=== PATIENT | female | born 1955 | race Caucasian/White ===

== ENCOUNTER 2018-05-26 07:12 | Observation (INO) | payer OTHER ==
--- NOTE | 2018-05-25 16:44 | PREOPHP ---
DATE OF ADMISSION: 05/26/2018 Scheduled for surgery 05/26/2018. HISTORY OF PRESENT ILLNESS: The patient is a 63-year-old female in overall good health, who presente d recently with a right breast mass in the upper outer quadrant near the periphery with core biopsy r evealing invasive ductal carcinoma. The tumor is estrogen and progesterone receptor positive and HER -2 negative. It measures 2.5 cm on imaging and slightly larger on physical exam. The patient was se en in consultation by oncology and she is scheduled to undergo right breast partial mastectomy with r ight axillary sentinel lymph node biopsy. PAST MEDICAL HISTORY: MEDICATIONS: Celebrex for her right knee pain. ALLERGIES: PENICILLIN. PAST SURGICAL HISTORY: Appendectomy. REVIEW OF SYSTEMS: 5, para 5. FAMILY HISTORY: She has a sister with ovarian cancer. PHYSICAL EXAMINATION: VITAL SIGNS: The patient is 180 pounds. Stable vital signs. HEENT: Within normal limits. LUNGS: Clear. HEART: Regular rate, rhythm. BREASTS: Small to moderate in size and ptotic. The left breast is unremarkable. The right breast h as an approximately 3 cm hard mass in the periphery of the upper outer quadrant at 10 o'clock. There is no palpable axillary or supraclavicular lymphadenopathy. ABDOMEN: Soft. PELVIC AND RECTAL: Per primary care physician. EXTREMITIES: Without edema. NEUROLOGIC: Physiologic. ASSESSMENT: Invasive ductal carcinoma right breast with right breast mass. PLAN: I have had a full discussion with the patient regarding the nature of the surgery and indicati ons, alternatives, options and risks including bleeding, infection, injury to adjacent structures, ne ed for additional surgery or other treatments including radiation and chemotherapy and hormonal block marisol, based on final pathology, scarring and distortion of the breast, et cetera. All questions have been answered. She understands and agrees to proceed. Dictated By: TRI MUNIZ/AMY Conf#: [id number] DID#: [id number]
[2018-05-26] VITALS (20 sets, daily range): BP systolic 119–167; BP diastolic 72–90; PULSE 76–96; RESP 16–29; Ht 147.3 cm; Wt 81.3 kg
[~2018-05-26] VITALS: Ht 147.3 cm; Wt 81.3 kg
[~2018-05-26 07:12] MED LIST: CEFAZOLIN 1 GM/50 ML (PMX) 50 ML IVPB ONE; DESFLURANE 15 MIN ONE; SOD CHLORIDE 0.9% 1,000 ML IV SCH
--- NOTE | 2018-05-26 07:39 | PREAC ---
Date/Time of Note Date/Time of Note DATE: 05/26/18 TIME: 07:38 Anesthesia Eval and Record Evaluation Time Pre-Procedure Interview DATE: 05/26/18 TIME: 07:38 Age 63 Sex female NPO: 8 hrs Preoperative diagnosis right breast cancer Planned procedure right partial mastectomy Past Medical History Past Medical History: Includes Cardio: HTN Musculoskeletal: Osteoarthritis (knees) GI: Obesity Surgery & Anesthesia Issues No known issue Meds Anticoagulation: No Beta Jourdan within 24 hr: No Reason Beta Jourdan not given: Pt. not on B-Jourdan Reported Medications Aspirin* (Aspirin* Chew) 81 Mg Tab.chew, 81 MG PO DAILY, TAB.CHEW 05/26/18 Amlodipine Besylate* (Norvasc*) 5 Mg Tablet, 5 MG PO BID, TAB 05/26/18 Calcium Carbonate ([place]-500) 500 Mg Tablet, 500 MG PO DAILY, TAB 05/26/18 Cholecalciferol* (Vitamin D3*) 1,000 Unit Tablet, 5000 UNIT PO DAILY, TAB 05/26/18 [place]-3S/Dha/Epa/Fish Oil (Fish Oil [place]-3 Softgel) 1 Each Capsule.dr, 1 CAP PO DAILY 05/26/18 Current Medications Sodium Chloride 1,000 ml @ 75 mls/hr [id number] IV ; Start 05/26/18 at 07:00 Meds reviewed: Yes Allergies Coded Allergies: Penicillins (Verified Allergy, Unknown, 05/26/18) Allergies Reviewed: Yes Labs/Studies Labs Reviewed: Reviewed by anesthesiologist test: N/A Studies: ECG Pre-procedure Exam Airway: Adequate mouth opening, Adequate thyromental dist Mallampati: Mallampati II (thick neck ) Teeth: Normal Lung: Normal Heart: Normal ASA Physical Status ASA physical status: 2 Emergency: None Planned Anesthetic General/MAC: ETT Planned Pain Management Parenteral pain med, Local by surgeon Pre-operative Attestations Prior to commencing anesthesia and surgery, the patient was re-evaluated, there was verification of: *The patient's identity *The results of appropriate recent lab work and preoperative vital signs *The above evaluation not changing prior to induction *Anesthetic plan, risk benefits, alternative and complications discussed with patient/family; questions answered; patient/family understands, accepts and wishes to proceed. LOYDA DAMICO May 26, 2018 07:39
[2018-05-26] MEDS ORDERED: OMEG-155 PO (08:18)
[2018-05-26] MEDS ORDERED: CALC500T11 PO (08:18)
[2018-05-26] MEDS ORDERED: AMLO5TAB4 PO (08:18)
[2018-05-26] MEDS ORDERED: CHOL100062 PO (08:18)
[2018-05-26] MEDS ORDERED: ASPI-903 PO (08:18)
[2018-05-26] MEDS ORDERED: MIDAZOLAM 1 MG/ML 2 ML INJ ONE (08:40)
[2018-05-26] MEDS ORDERED: FENTAnyl 50 MCG/ML VIAL ONE ×2 (08:40→12:06)
[2018-05-26] MEDS ORDERED: PROPOFOL 20 ML ONE (08:40)
[2018-05-26] MEDS ORDERED: CLINDAMYCIN 900 MG/D5W (PMX) 50 ML IVPB ONE (08:40)
[2018-05-26] MEDS ORDERED: LIDOCAINE 2% (SDV) 5 ML INJ ONE (08:40)
[2018-05-26] MEDS ORDERED: OXYCODONE/ACETAMINOPHEN (5/325) TAB PO PRN ×2 (09:00)
[2018-05-26] MEDS ORDERED: ONDANSETRON 4 MG INJ IV PRN ×2 (09:00→13:00)
[2018-05-26] MEDS ORDERED: MEPERIDINE 25 MG INJ IV PRN (09:00)
[2018-05-26] MEDS ORDERED: hydrALAzine 20 MG INJ IV PRN (09:00)
[2018-05-26] MEDS ORDERED: HYDROmorphONE 1 MG/5 ML IV SYRINGE IV PRN ×3 (09:00)
[2018-05-26] MEDS ORDERED: LABETALOL HCL 20MG INJ IV PRN (09:00)
[2018-05-26] MEDS ORDERED: ISOSULFAN BLUE 1% 5 ML INJ SC ONE (10:54)
[2018-05-26] MEDS ORDERED: DEXAMETHASONE 4 MG/ML 5 ML INJ ONE (11:18)
[2018-05-26] MEDS ORDERED: METOCLOPRAMIDE 10 MG INJ ONE (11:18)
[2018-05-26] MEDS ORDERED: ONDANSETRON 4 MG INJ ONE (11:18)
[2018-05-26] MEDS ORDERED: FAMOTIDINE 20 MG INJ ONE (11:18)
[2018-05-26] MEDS ORDERED: SUCCINYLCHOLINE CHLORIDE 100 MG/5 ML SYG IV ONE (12:13)
--- NOTE | 2018-05-26 12:57 | SIPON ---
Date/Time of Note Date/Time of Note DATE: 05/26/18 TIME: 12:51 Operative Report Preoperative Diagnosis invasive ductal carcinoma right breast Postoperative Diagnosis same Operation/Procedure Performed right breast partial mastectomy and right axillary lower level dissection and sentinel lymph node biopsy Surgeon see signature line behavioral modification assistant none Anesthesia: general Estimated blood loss: minimal Transfusion Required none Specimen right breast mass and axillary lymph nodes Grafts/Implants none Complications none TRI EVANS May 26, 2018 12:56
[2018-05-26] MEDS ORDERED: hydrALAzine 20 MG INJ IV ONE (13:00)
[2018-05-26] MEDS ORDERED: HYDROmorphONE 0.5 MG/0.5 ML SYG SC PRN (13:00)
[2018-05-26] MEDS ORDERED: HYDROCODONE/APAP (5/325) TAB PO PRN (13:00)
[2018-05-26] MEDS ORDERED: DIPHENHYDRAMINE 25 MG CAP PO PRN (13:00)
--- NOTE | 2018-05-26 13:06 | PAC ---
Date/Time of Note Date/Time of Note DATE: 05/26/18 TIME: 13:06 Post-Anesthesia Notes Post-Anesthesia Note Last documented vital signs Vital Signs Date Temp Pulse Resp B/P (MAP) Pulse Ox O2 O2 Flow FiO2 Time Delivery Rate 05/26/18 94 23 136/77 97 Room Air 12:54 (96) 05/26/18 97.5 12:47 Activity: WNL Respiratory function: WNL Cardiovascular function: WNL Mental status: Baseline Pain reasonably controlled: Yes Hydration appropriate: Yes Nausea/Vomiting absent: Yes LOYDA DAMICO May 26, 2018 13:06
[2018-05-26] MEDS: D5W-0.45 NACL + KCL 20 MEQ 1,000 ML IV SCH (15:01)
--- NOTE | 2018-05-26 17:03 | RADRPT ---
Vent Rate: 86 bpm RR Interval: 0 msec DE Interval: 142 msec QRS Duration: 84 msec QT Interval: 366 msec QTC Interval: 437 msec P-R-T [place]: 50 - 73 - -75 degrees Normal sinus rhythm ST & T wave abnormality, consider inferior ischemia ST & T wave abnormality, consider anterolateral ischemia Abnormal ECG Electronically Signed By: Cassius Castillo
--- NOTE | 2018-05-26 17:27 | OPR ---
DATE OF OPERATION: SURGEON: Tri Espino MD HANDLE MAKER: None. ANESTHESIOLOGIST: Micky Mendoza CRNA TYPE OF ANESTHESIA: General. PREOPERATIVE DIAGNOSIS: Invasive ductal carcinoma, right breast. POSTOPERATIVE DIAGNOSIS: Invasive ductal carcinoma, right breast. OPERATION PERFORMED: Right breast partial mastectomy and right axillary level 1 lymph node dissection sentinel nodes. DESCRIPTION OF PROCEDURE: The patient was taken to the operating room and under general anesthesia with sequential compression device stockings, 3 mL of Lymphazurin was injected at 10 o'clock at the areolar border. The patient was prepped and draped in the usual fashion, incorporating the right upper extremity in the field. The 2 to 3 cm mass was located at 10 o'clock near the periphery of the upper outer quadrant of the right breast. I first made an axillary incision achieving hemostasis with cautery and incising the clavipectoral fascia. A blue stained node was evident, but a lower level dissection was performed using the [employer] electrosurgical device. The specimen was given to pathology and confirmed the presence of the lymph nodes. The field was irrigated and hemostasis was seen to be secure. Through a separate stab incision inferolaterally a 19 mm round Shilo drain was placed into the axilla and sutured to the skin with a 2-0 nylon skin suture. The clavipectoral fascia was closed with interrupted 3-0 Vicryl, subcutaneous tissue was closed with interrupted 3-0 Vicryl and the skin was closed with continuous 4-0 Monocryl subcuticular suture. Then, a transverse curvilinear upper outer quadrant right breast incision was made and flaps dissected circumferentially and hemostasis was achieved with cautery. The mass was resected down to the chest wall with appropriate margins circumferentially. It was oriented with suture markers anterior, superior and medial and given to pathology. The field was irrigated and hemostasis was secured with cautery. The incision was closed with interrupted 3-0 Vicryl deep dermal subcutaneous sutures followed by 4-0 Monocryl continuous subcuticular suture. Mastisol and 1/2-inch Steri-Strips were applied to both incisions followed by dry sterile dressing. Final sponge and needle counts were correct at the end of the procedure. A post-partial mastectomy surgical brassiere was applied. The patient tolerated the procedure well and left the operating room in good condition. Dictated By: TRI MUNIZ/AMY Conf#: [id number] DID#: [id number] MTDAntoni
[2018-05-27] MEDS: D5W-0.45 NACL + KCL 20 MEQ 1,000 ML IV SCH ×2 (04:15→08:43)
[2018-05-27] MEDS: ACETAMINOPHEN 325 MG TAB PO PRN ×2 (04:27→13:35)
[2018-05-27 07:29] VITALS: BP 129/78; PULSE 86; RESP 18
--- NOTE | 2018-05-27 09:14 | PN ---
Date/Time of Note Date/Time of Note DATE: 05/27/18 TIME: 09:11 Assessment/Plan Lines/Catheters IV Catheter Type (from Nrsg): Peripheral IV Piña in Place (from Nrsg): No Subjective 24 Hr Interval Summary Additional Comments AVSS but had dizziness getting out of bed last evening, now resolving. also c/o posterior headache. Able to eat some breakfast but not much intake last night. right breast and axilla incisions are clean and dry with intact steristrips BETHANY 15cc serosang Imp. Inability to tolerate sufficient po intake and independent ambulation Plan: keep in hospital another day teach re care of drain Exam/Review of Systems Vital Signs Vitals Vital Signs Date Temp Pulse Resp B/P (MAP) Pulse Ox O2 O2 Flow FiO2 Time Delivery Rate 05/27/18 98.2 86 18 129/78 90 07:29 (95) 05/26/18 Room Air 23:40 05/26/18 2.0 20:02 Intake and Output 05/26/18 05/26/18 05/27/18 1414:59 22:59 06:59 IntakeIntake Total 1100 ml 1600 ml 625 ml OutputOutput Total 310 ml 0 ml 315 ml BalanceBalance 790 ml 1600 ml 310 ml Results Result Diagram: 05/26/1890205/26/18 0903 TRI EVANS May 27, 2018 09:13
[2018-05-27 14:31] VITALS: BP 155/75; PULSE 77; RESP 18
[2018-05-27 19:10] VITALS: BP 173/86; PULSE 75; RESP 18
[2018-05-27] MEDS: AMLODIPINE 5 MG TAB PO SCH (21:43)
[2018-05-28 00:05] VITALS: BP 131/80; PULSE 68; RESP 17
[2018-05-28 04:10] VITALS: BP 133/78; PULSE 73; RESP 18
[2018-05-28 08:38] VITALS: BP 137/84; PULSE 75; RESP 18
[2018-05-28] MEDS: AMLODIPINE 5 MG TAB PO SCH (08:43)
--- NOTE | 2018-05-28 10:01 | PN ---
Date/Time of Note Date/Time of Note DATE: 05/28/18 TIME: 09:59 Assessment/Plan Lines/Catheters IV Catheter Type (from Nrsg): Saline Lock Piña in Place (from Nrsg): No Subjective 24 Hr Interval Summary Additional Comments AVSS Doing better and no vertigo with ambulation . right breast and axilla incisions clean and dry Drain 30cc serosang Imp: stable Plan: discharge with supplies/instructions/limitations provided/discussed Rx [place] 5/325 #20 f/u office 06/03 Exam/Review of Systems Vital Signs Vitals Vital Signs Date Temp Pulse Resp B/P (MAP) Pulse Ox O2 O2 Flow FiO2 Time Delivery Rate 05/28/18 98.1 75 18 137/84 Room Air 08:38 (101) 05/28/18 94 04:10 05/26/18 2.0 20:02 Intake and Output 05/27/18 05/27/18 05/28/18 1515:00 23:00 07:00 IntakeIntake Total 540 ml OutputOutput Total 25 ml 5 ml BalanceBalance 515 ml -5 ml Results Result Diagram: 05/26/18 0903 05/26/18 0903 TRI EVANS May 28, 2018 10:01
== END 2018-05-28 13:24 | disposition home or self-care (01) ==
LOC: SDS 07:12 → REC 12:51 → SDS 12:51 → MS1 14:20
PROVIDERS: ADMIT Surgery; ATTEND Surgery
DX: C50.911 Malignant neoplasm of unspecified site of right female breast (principal); Z80.41 Family history of malignant neoplasm of ovary; Z88.0 Allergy status to penicillin
CPT/HCPCS: 19281; 19301; 38500; 80053; 85025; 85610; 85730; 88307; 88342; 93005; J1100; J2250; J2405; J2765; J3010; J3480; Z7500; Z7512; Z7610; G0378; Q9968